=== PATIENT | female | born 1980 | race Two or more races ===

== ENCOUNTER 2021-04-28 21:11 | Emergency (ER) | payer MEDICAID ==
[~2021-04-28] VITALS: Ht 157.5 cm; Wt 59.1 kg
[2021-04-28] MEDS ORDERED: LIDO1ADH23 TP (21:32)
[2021-04-28] MEDS ORDERED: KETOROLAC TROMETHAMINE 30 MG/ML VIAL IM ONE (23:45)
[2021-04-28] MEDS ORDERED: ONDANSETRON HCL 4 MG TABLET PO ONE (23:45)
[2021-04-28 23:57] VITALS: BP 147/90
[2021-04-29] MEDS ORDERED: ALBUTEROL SULFATE HFA 90 MCG/PUFF 8 GM INHALER IH ONE (01:15)
== END 2021-04-29 01:21 | disposition home or self-care (01) ==
LOC: EMS 21:14
DX: S22.31XA Fracture of one rib, right side, initial encounter for closed fracture (principal); J45.909 Unspecified asthma, uncomplicated; X58.XXXA Exposure to other specified factors, initial encounter; Y93.89 Activity, other specified; Y92.89 Other specified places as the place of occurrence of the external cause; Y99.8 Other external cause status
CPT/HCPCS: 71101; 94640; 96372; 99283; Q0162; J3535

== ENCOUNTER 2023-04-04 17:50 | Emergency (ER) | payer MEDICAID ==
[~2023-04-04] VITALS: Ht 157.5 cm; Wt 56.8 kg
[~2023-04-04 17:50] MED LIST: LIDO1ADH23 TP
[2023-04-04 17:53] VITALS: TEMP 98.3
[2023-04-04] MEDS ORDERED: MECLIZINE HCL 25 MG TABLET PO ONE (18:30)
[2023-04-04] MEDS ORDERED: ONDANSETRON HCL 4 MG/2 ML VIAL IVP ONE (18:30)
[2023-04-04] MEDS ORDERED: SODIUM CHLORIDE 0.9% 2,000 ML IV ONE (18:30)
[2023-04-04] MEDS ORDERED: KETOROLAC TROMETHAMINE 30 MG/ML VIAL IVP ONE (18:30)
[2023-04-04 18:41] LABS: BASOPHILS % (AUTO) 0.3 % (0.0-2.0); EOSINOPHILS % (AUTO) 2.2 % (1.0-6.0); HEMATOCRIT 29.5 % (36-46); HEMOGLOBIN 9.4 g/dL (12.0-16.0); LYMPHOCYTES # (AUTO) 1.6 K/uL (1.0-4.8); LYMPHOCYTES % (AUTO) 25.2 % (22.0-44.0); MEAN CORPUSCULAR HEMOGLOBIN 22.8 pg (26.0-34.0); MEAN CORPUSCULAR HGB CONC 31.8 G/dL (31.0-37.0); MEAN CORPUSCULAR VOLUME 72 fL (80-100); MONOCYTES # (AUTO) 0.5 K/uL (0.1-1.0); MONOCYTES % (AUTO) 7.2 % (2.0-9.0); NEUTROPHILS # (AUTO) 4.1 K/uL (1.8-7.7); NEUTROPHILS % (AUTO) 65.1 % (40.0-70.0); PLATELET COUNT (AUTO) 351 K/uL (150-450); RED BLOOD CELL COUNT(AUTO) 4.11 MIL/uL (4.00-5.20); RED CELL DISTRIBUTION WIDTH 20.4 % (11.5-14.5); WHITE BLOOD COUNT (AUTO) 6.4 K/uL (4.5-11.0)
[2023-04-04 18:49] LABS: ANION GAP 11 mmol/L (8-16); CALCIUM, TOTAL 9.2 mg/dL (8.8-10.5); CARBON DIOXIDE 27 mmol/L (22-29); CHLORIDE 107 mmol/L (98-107); CREATININE 0.52 mg/dL (0.60-1.30); GLOMERULAR FILTR. RATE CALC > 60 mL/min (>60); GLUCOSE,RANDOM 94 mg/dL (70-110); POTASSIUM 3.8 mmol/L (3.5-5.1); SODIUM SERUM 145 mmol/L (136-145); UREA NITROGEN, BLOOD 14 mg/dL (7-18)
[2023-04-04 19:02] LABS: ALANINE AMINOTRANSFERASE 25 U/L (12-78); ALBUMIN 3.4 g/dL (3.4-5.0); ALKALINE PHOSPHATASE 58 U/L (46-116); ASPARTATE AMINOTRANSFERASE 10 U/L (15-37); BILIRUBIN,TOTAL 0.2 mg/dL (0.1-1.0); HCG,QUANTITATIVE < 1 mIU/mL (0-6); TOTAL PROTEIN, SERUM 6.8 g/dL (6.4-8.2)
[2023-04-04 19:37] LABS: RBC MORPHOLOGY COMMENT ABNORMAL RBC MORPH
[2023-04-04] MEDS ORDERED: MECL-134 PO (21:44)
[2023-04-04] MEDS ORDERED: IBUP-1554 PO (21:44)
[2023-04-04] MEDS ORDERED: ACET-2080 PO (21:44)
[2023-04-04 21:54] VITALS: BP 131/82; PULSE 57; RESP 17
== END 2023-04-04 22:00 | disposition home or self-care (01) ==
LOC: EMS 17:51
DX: S63.501A Unspecified sprain of right wrist, initial encounter (principal); N83.201 Unspecified ovarian cyst, right side; N94.6 Dysmenorrhea, unspecified; R42 Dizziness and giddiness; G43.909 Migraine, unspecified, not intractable, without status migrainosus; Z88.8 Allergy status to other drugs, medicaments and biological substances; X58.XXXA Exposure to other specified factors, initial encounter; Y93.89 Activity, other specified; Y92.89 Other specified places as the place of occurrence of the external cause; Y99.8 Other external cause status
CPT/HCPCS: 99285; 96374; 76856; 96361; 96375; 80053; 84702; 85025; 86901; 36415; 73110; 73130; 29125; J1885; J2405; J7030

== ENCOUNTER 2024-01-12 10:03 | Emergency (ER) | payer MEDICAID ==
[~2024-01-12] VITALS: Ht 157.5 cm; Wt 60.0 kg
[~2024-01-12 10:03] MED LIST changes: +ACET-2080 PO; +IBUP-1554 PO; -LIDO1ADH23 TP; +MECL-134 PO
[2024-01-12 10:13] VITALS: TEMP 98.2
[2024-01-12 10:55] LABS: BASOPHILS % (AUTO) 0.6 % (0.0-2.0); EOSINOPHILS % (AUTO) 0.8 % (1.0-6.0); HEMATOCRIT 33.6 % (36-46); HEMOGLOBIN 10.6 g/dL (12.0-16.0); LYMPHOCYTES # (AUTO) 1.3 K/uL (1.0-4.8); LYMPHOCYTES % (AUTO) 28.5 % (22.0-44.0); MEAN CORPUSCULAR HEMOGLOBIN 22.4 pg (26.0-34.0); MEAN CORPUSCULAR HGB CONC 31.7 G/dL (31.0-37.0); MEAN CORPUSCULAR VOLUME 71 fL (80-100); MONOCYTES # (AUTO) 0.3 K/uL (0.1-1.0); MONOCYTES % (AUTO) 6.7 % (2.0-9.0); NEUTROPHILS % (AUTO) 63.4 % (40.0-70.0); PLATELET COUNT (AUTO) 362 K/uL (150-450); RED BLOOD CELL COUNT(AUTO) 4.75 MIL/uL (4.00-5.20); RED CELL DISTRIBUTION WIDTH 19.5 % (11.5-14.5); WHITE BLOOD COUNT (AUTO) 4.7 K/uL (4.5-11.0)
[2024-01-12 10:57] LABS: RBC MORPHOLOGY COMMENT ABNORMAL RBC MORPH
[2024-01-12 11:01] LABS: ANION GAP 9 mmol/L (8-16); CALCIUM, TOTAL 9.1 mg/dL (8.8-10.5); CARBON DIOXIDE 25 mmol/L (22-29); CHLORIDE 103 mmol/L (98-107); CREATININE 0.69 mg/dL (0.60-1.30); GLOMERULAR FILTR. RATE CALC > 60 mL/min (>60); GLUCOSE,RANDOM 109 mg/dL (70-110); POTASSIUM 3.8 mmol/L (3.5-5.1); SODIUM SERUM 137 mmol/L (136-145); UREA NITROGEN, BLOOD 18 mg/dL (7-18)
[2024-01-12 11:12] LABS: HCG,QUANTITATIVE < 1 mIU/mL (0-6)
[2024-01-12] MEDS ORDERED: IBUP-1492 PO (13:01)
[2024-01-12] MEDS ORDERED: CYCL-448 PO (13:01)
[2024-01-12] MEDS: KETOROLAC TROMETHAMINE 30 MG/ML VIAL IVP ONE (13:07)
[2024-01-12 13:19] VITALS: BP 139/74; PULSE 72; RESP 16
== END 2024-01-12 13:40 | disposition home or self-care (01) ==
LOC: EMS 10:03
DX: G89.29 Other chronic pain (principal); M79.661 Pain in right lower leg; M54.41 Lumbago with sciatica, right side; R56.9 Unspecified convulsions; G43.909 Migraine, unspecified, not intractable, without status migrainosus; Z88.1 Allergy status to other antibiotic agents
CPT/HCPCS: 99285; 96374; 93971; 80048; 84702; 85025; 85379; 36415; J1885

== ENCOUNTER 2024-03-01 19:02 | Emergency (ER) | payer MEDICAID ==
[~2024-03-01] VITALS: Ht 157.5 cm; Wt 63.6 kg
[~2024-03-01 19:02] MED LIST changes: -ACET-2080 PO; +CYCL-448 PO; +IBUP-1492 PO; -IBUP-1554 PO; -MECL-134 PO
[2024-03-01] MEDS: OxyCODONE HCL/ACETAMINOPHEN 5-325 MG TABLET PO ONE (20:10)
[2024-03-01] MEDS ORDERED: OXYC-38 PO (20:26)
[2024-03-01 21:02] VITALS: BP 142/98; PULSE 75; RESP 16; TEMP 98.3; O2SAT 98
== END 2024-03-01 21:12 | disposition home or self-care (01) ==
LOC: EMS 19:02
DX: S83.92XA Sprain of unspecified site of left knee, initial encounter (principal); J45.909 Unspecified asthma, uncomplicated; G43.909 Migraine, unspecified, not intractable, without status migrainosus; Z98.890 Other specified postprocedural states; Z88.8 Allergy status to other drugs, medicaments and biological substances; X50.1XXA Overexertion from prolonged static or awkward postures, initial encounter; Y93.89 Activity, other specified; Y92.89 Other specified places as the place of occurrence of the external cause; Y99.8 Other external cause status
CPT/HCPCS: 29505; 99283

== ENCOUNTER → 2024-08-14 | Emergency (ER) | payer MEDICAID ==
[~2024-08-14] VITALS: Ht 162.6 cm; Wt 65.9 kg
[~2024-08-14] MED LIST changes: +ACET-2247 PO; +OXYC-38 PO; +PRED-554 PO
[2024-08-14 13:25] VITALS: TEMP 98.9
[2024-08-14 13:31] LABS: COVID AG,FIA SOURCE NASAL SWAB
[2024-08-14 13:57] LABS: INFLUENZA TYPE A NEGATIVE FOR TYPE A (NEGATIVE); INFLUENZA TYPE B POSITIVE FOR TYPE B (NEGATIVE); SARS-COV2 (COVID) ANTIGEN,FIA Negative (Negative)
[2024-08-14] MEDS: PredniSONE 20 MG TABLET PO ONE (15:19)
[2024-08-14 15:30] VITALS: BP 145/88
[2024-08-14 15:34] VITALS: PULSE 94; RESP 18; O2SAT 98
[2024-08-14] MEDS: ALBUTEROL SULFATE HFA 90 MCG/PUFF 8 GM INHALER IH ONE (15:34)
== END | disposition home or self-care (01) ==
LOC: EMS 13:16
DX: J11.1 Influenza due to unidentified influenza virus with other respiratory manifestations (principal); J45.909 Unspecified asthma, uncomplicated; Z88.1 Allergy status to other antibiotic agents; Z20.822 Contact with and (suspected) exposure to COVID-19
CPT/HCPCS: 99283; 87426; 87430; 87804; 94640; J7512; J3535

== ENCOUNTER 2024-12-19 20:24 | Emergency (ER) | payer MEDICAID ==
[~2024-12-19] VITALS: Ht 157.5 cm; Wt 65.9 kg
[2024-12-19 21:15] VITALS: BP 135/92; PULSE 78; RESP 16; TEMP 98.3; O2SAT 96
[2024-12-19] MEDS ORDERED: IBUP-1554 PO (21:17)
[2024-12-19] MEDS ORDERED: BACI28.410 TP (21:17)
[2024-12-19] MEDS ORDERED: ACET-66 PO (21:17)
[2024-12-19] MEDS: ACETAMINOPHEN 500 MG TABLET PO ONE (21:28)
[2024-12-19] MEDS: IBUPROFEN 600 MG TABLET PO ONE (21:28)
[2024-12-19] MEDS: BACITRACIN 0.9 GM PACKET OINTMENT TP ONE (21:28)
== END 2024-12-19 21:30 | disposition home or self-care (01) ==
LOC: EMS 20:24
DX: T24.222A Burn of second degree of left knee, initial encounter (principal); I10 Essential (primary) hypertension; J45.909 Unspecified asthma, uncomplicated; G43.909 Migraine, unspecified, not intractable, without status migrainosus; Z98.890 Other specified postprocedural states; Z79.52 Long term (current) use of systemic steroids; Z88.1 Allergy status to other antibiotic agents; Z79.899 Other long term (current) drug therapy; X11.8XXA Contact with other hot tap-water, initial encounter; Y92.89 Other specified places as the place of occurrence of the external cause; Y93.89 Activity, other specified; Y99.8 Other external cause status
CPT/HCPCS: 16000; 99283; 99284